=== PATIENT | male | born 1965 | race Caucasian/White ===

== ENCOUNTER 2022-05-09 16:59 | Emergency (ER) | payer BC, SELFPAY ==
[2022-05-09 17:25] VITALS: BP 166/96; PULSE 72; RESP 16; TEMP 36.8; O2SAT 96; BMI 39.9
[2022-05-09] MEDS: LIDOCAINE 2% INJ SDV 10 ML (20:08)
[2022-05-09] MEDS: TET,DIPH,PERTUSS(ACELL),VAC/PF 0.5 ML SYRINGE IM (20:34)
[2022-05-09 20:56] VITALS: BP 134/76; PULSE 82; RESP 18; TEMP 36.4; O2SAT 99
--- NOTE | 2022-05-09 20:58 | PC.NURSE ---
Dressing applied to wound & secured with tube gauze.
--- NOTE | 2022-05-10 08:27 | ED.SKABFB ---
HPI - Skin/Abscess/Foreign Bdy <Dave Servin PA-C - Last Filed: 05/10/22 08:41> General Chief complaint: Skin/Abscess/Foreign Body Stated complaint: CUT LT. MIDDLE FINGER Time Seen by Provider: 05/09/22 19:34 Source: patient Mode of arrival: Ambulatory History of Present Illness HPI narrative: Fifty 6-year-old male presents to the ED status post a finger injury sustained just prior to arrival. Patient was straining to move a a grill at home with his , when it slipped, the sharp corner injured his left middle finger. The injury is a flap injury to the tip of the left middle finger. Bleeding is controlled with pressure. Patient endorses being able to move his fingers. Denies numbness, tingling, weakness. Last tetanus was around 5 years ago. Review of Systems <Dave Servin PA-C - Last Filed: 05/10/22 08:41> Review of Systems ROS Unobtainable: All systems reviewed & are unremarkable except as noted in HPI and below Constitutional Constitutional: Denies chills, Denies fatigue, Denies fever(s), Denies frequent falls, Denies lethargy and Denies weakness Eyes Eyes: Denies change in vision, Denies eye discharge, Denies irritation and Denies loss of vision ENT Ears, Nose, Mouth, and Throat: Denies change in voice, Denies dizziness, Denies neck pain, Denies sore throat and Denies throat swelling Cardiovascular Cardiovascular: Denies chest pain, Denies irregular heart rhythm, Denies lightheadedness, Denies palpitations, Denies dyspnea, Denies dyspnea on exertion and Denies orthopnea Respiratory Respiratory: Denies cough, Denies dyspnea, Denies dyspnea on exertion and Denies wheezing Gastrointestinal Gastrointestinal: Denies abdominal pain, Denies change in bowel habits, Denies diarrhea, Denies nausea and Denies vomiting Genitourinary Genitourinary: Denies hematuria, Denies flank pain, Denies urinary incontinence and Denies urinary urgency Musculoskeletal Musculoskeletal: Denies back pain, Denies muscle weakness, Denies neck pain, Denies numbness and Denies tingling Integumentary/Breasts Skin/Breast: Denies pruritus, Denies erythema, Denies rash and Reports wounds Comments: Finger laceration Neurologic Neurologic: Denies behavioral changes, Denies confusion, Denies dizziness, Denies frequent falls, Denies loss of vision, Denies numbness, Denies tingling and Denies weakness Psychiatric Psychiatric: Denies anxiety, Denies behavioral changes, Denies confusion, Denies depression, Denies homicidal ideation and Denies suicidal ideation Endocrine Endocrine: Denies fatigue, Denies flushing and Denies palpitations Hematologic/Lymphatic Hematologic/Lymphatic: Denies easy bruising Allergic/Immunologic Allergic/Immunologic: Denies urticaria, Denies throat swelling and Denies wheezing Patient History <Dave Servin PA-C - Last Filed: 05/10/22 08:41> Social History Smoking Status: Never smoker Smoking Status: Never smoker Substance Use Type: does not use Exam <Dave Servin PA-C - Last Filed: 05/10/22 08:41> Narrative Exam Narrative: Const General: cooperative, healthy appearing and comfortable HENMT Head: normal to inspection Ears: hearing grossly normal bilaterally Nose: external nose normal Face and sinus: normal facial exam and sinuses nontender Mouth: oral mucosae normal Throat: posterior oropharynx normal Eyes General: appearance normal, both eyes and all related structures Neck Neck: normal visual inspection and no lymphadenopathy noted Resp Effort & Inspection: normal respiratory effort Auscultation: clear to auscultation bilaterally Cardio Rate: regular rate Rhythm: regular rhythm Integumentary 2 cm flap laceration to the tip of the left middle finger. Bleeding was controlled with pressure. Strength and sensation intact. There is full range of motion. No internal structures visualized on exam. Neuro General: patient alert, patient awake and patient oriented x3 Initial Vital Signs Initial Vital Signs: Vital Signs Temperature 98.3 F 05/09/22 17:25 Pulse Rate 72 05/09/22 17:25 Respiratory Rate 16 05/09/22 17:25 Blood Pressure 166/96 H 05/09/22 17:25 Pulse Oximetry 96 05/09/22 17:25 Oxygen Delivery Method 05/09/22 17:25 <Geovanny Bunch DO - Last Filed: 05/10/22 15:49> Initial Vital Signs Initial Vital Signs: Vital Signs Temperature 98.3 F 05/09/22 17:25 Pulse Rate 72 05/09/22 17:25 Respiratory Rate 16 05/09/22 17:25 Blood Pressure 166/96 H 05/09/22 17:25 Pulse Oximetry 96 05/09/22 17:25 Oxygen Delivery Method 05/09/22 17:25 Procedures <Dave Servin PA-C - Last Filed: 05/10/22 08:41> Laceration Repair Laceration 1: Site: hand Side (If applicable): left Size (cm): 2 Description: flap Depth: simple, single layer Local Anesthetic: lidocaine 2% Amount of anesthesia used (mL): 2 Pre-repair: wound explored and irrigated extensively Skin layer closed with: vicryl Skin layer suture size: 5-0 Number of sutures: 6 Technique: simple, interrupted Course <Dave Servin PA-C - Last Filed: 05/10/22 08:41> Orders Ordered: Discontinued Medications Diphtheria/Tetanus/Acell Pertussis (Tet,Diph,Pertuss(Acell),Vac/Pf 0.5 Ml Syringe) 0.5 ml IM .ONCE ONE Stop: 05/09/22 20:19 Last Admin: 05/09/22 20:34 Dose: 0.5 ml Documented By: GC Lidocaine HCl (Lidocaine 1% (Pf) 5 Ml) 10 ml INJ NOW ONE Stop: 05/09/22 19:35 Last Admin: 05/09/22 19:43 Dose: Not Given Documented By: KSENIA <Geovanny Bunch DO - Last Filed: 05/10/22 15:49> Orders Ordered: Discontinued Medications Diphtheria/Tetanus/Acell Pertussis (Tet,Diph,Pertuss(Acell),Vac/Pf 0.5 Ml Syringe) 0.5 ml IM .ONCE ONE Stop: 05/09/22 20:19 Last Admin: 05/09/22 20:34 Dose: 0.5 ml Documented By: GC Lidocaine HCl (Lidocaine 1% (Pf) 5 Ml) 10 ml INJ NOW ONE Stop: 05/09/22 19:35 Last Admin: 05/09/22 19:43 Dose: Not Given Documented By: KSENIA MDM - Skin/Abscess/Foreign Bdy <Dave Servin PA-C - Last Filed: 05/10/22 08:41> MDM Narrative Medical decision making narrative: 56-year-old male presents to the ED status post a finger injury sustained just prior to arrival. Physical exam is consistent with a flap laceration to the tip of the left middle finger. No internal structures visualized on exam. There is full range of motion and strength and sensation are intact. Nature of the injury does not indicate need for imaging or likelihood of fractures or dislocations. Laceration was repaired with 6 sutures. Sutures will need to be removed in 7-10 days. Wound care precautions discussed with patient. Infection precautions discussed with patient. Signs of infection discussed with patient. ED return precautions discussed with patient. Patient verbalized understanding. Discharge Plan Departure Patient Disposition: Home Clinical Impression: Laceration Instructions: DI for Laceration Repair Activity Restrictions/Additional Instructions: You were evaluated in the ED today for a finger injury. Your injury was repaired with 6 sutures. The sutures will need to be removed in 7-10 days. You may return to the ED, go to an urgent care center or walk-in clinic or to your PCP for suture removal. Please monitor the wound for signs of infection including redness, pain, warmth, discharge, swelling. Return to the ED if you note any signs of infection. Referrals: Gera Rader DO [Primary Care Provider] - Visit Report Forms: Patient Portal/API <Geovanny Bunch DO - Last Filed: 05/10/22 15:49> Cosign ED Attending Molly Attestation: I was immediately available in the department for consultation. Documentation has been reviewed. I agree with assessment and plan.
== END 2022-05-09 20:55 | disposition home or self-care (01) ==
PROVIDERS: Emergency Provider Student in an Organized Health Care Education/Training Program; PCP Internal Medicine
DX: S61.213A Laceration without foreign body of left middle finger without damage to nail, initial encounter (principal); W26.9XXA Contact with unspecified sharp object(s), initial encounter; Z23 Encounter for immunization
CPT/HCPCS: 12001; 90471; 99283; 90715